=== PATIENT | male | born 1955 | race Caucasian/White ===

== ENCOUNTER 2024-02-05 08:41 | Day surgery (SDC) | payer MEDICARE, SELFPAY ==
--- NOTE | 2024-02-05 | PATH_ITS ---
[facility] Accession Number: [id number] No. of containers..02 Tissue . 01 Material submitted: . PART A: colon - ASCENDING COLON POLYP PART B: colon - TRANSVERSE COLON POLYP . 01 Diagnosis: A. ASCENDING COLON POLYP: Tubular adenoma. . B. TRANSVERSE COLON POLYP: Tubular adenoma. MRV 02/07/2024 1747 Local . 01 Electronically signed: . Enoch White MD, PhD, Pathologist NPI- [id number] . 01 Gross description: . Part A: ASCENDING COLON POLYP: Received in formalin is 1 fragment(s) of jacinto, soft tissue measuring 0.3 x 0.3 x 0.2 cm submitted entirely in 1 cassette(s) Part B: TRANSVERSE COLON POLYP: Received in formalin are 2 fragment(s) of jacinto, soft tissue measuring 0.3 x 0.3 x 0.3 cm to 0.5 x 0.4 x 0.3 cm submitted entirely in 1 cassette(s) /KEESHA 02/06/2024 0052 Local . 01 Pathologist provided ICD-10: D12.2, D12.3 . 01 CPT . 786279, 211504 Specimen Comment: A courtesy copy of this report has been sent to [phone] Performed at: [address] [facility] [address] [address], [place], [place] [id number] MD Cornelius Amaro MD Phone: [phone]
[2024-02-05 09:21] VITALS: BP 128/77; PULSE 66; RESP 16; TEMP 36.4; O2SAT 100
[2024-02-05] MEDS: LACTATED RINGERS 1,000 ML 42 ML IV (09:26)
--- NOTE | 2024-02-05 09:43 | P.HP_ITS ---
History of Present Illness History of Present Illness Date Patient Seen: 02/05/24 Time Patient Seen: 09:43 Chief complaint: SD Narrative: 68-year-old with a positive Cologuard here for colonoscopy. Negative colonoscopy at age 49. [facility] Medical History Hypertension Social History Smoking Status: Never smoker Meds Home Medications and Allergies Home Medications Medication Instructions Recorded Confirmed Type spironolactone 50 mg tablet 50 mg PO DAILY 02/05/24 02/05/24 History valsartan 80 mg tablet 80 mg PO DAILY 02/05/24 02/05/24 History Allergies Allergy/AdvReac Type Severity Reaction Status Date / Time No Known Drug Allergies Allergy Verified 02/05/24 09:19 Review of Systems Review of Systems ROS: Yes All systems reviewed with the patient and are negative except as otherwise documented Exam Vital Signs (past 8 hours): - 02/05/24 09:21 Temperature 97.5 F L Pulse Rate 66 Respiratory Rate 16 Blood Pressure 128/77 Pulse Oximetry 100 Oxygen Delivery Method Room Air Oxygen Delivery Method Room Air Const General: cooperative HENMT Head: normal to inspection Eyes General: appearance normal, both eyes and all related structures Neck Neck: normal visual inspection Chest Chest: normal inspection of the chest Resp Effort & Inspection: normal respiratory effort Cardio Rate: regular rate GI Inspection: normal to inspection Skin General: no rashes or lesions noted Neuro General: patient alert and patient awake Extrem General: normal to inspection and no pedal edema Psych Appearance: grossly normal Assessment & Plan Assessment & Plan narrative: 68-year-old female with a positive Cologuard. No family history of colon cancer. Colonoscopy is pursued today. Time-Based Coding :: [TOTAL MINUTES] spent with patient and on the chart (including review of chart, obtaining history, exam, reviewing outside data, placing orders, documenting exam and treatment plan, and counseling patient) on [DATE].
--- NOTE | 2024-02-05 09:44 | PM.PREOP ---
Pre-operative Note Interval Note History & Physical reviewed/Exam performed by Physician: Yes Changes to H&P: No ASA Class (for procedural sedation): II
--- NOTE | 2024-02-05 10:43 | PM.OP.COLON ---
Operative Date/Time/Diagnoses Date of procedure: 02/05/24 Time of procedure: 10:43 Pre-op diagnosis: Positive Cologuard Post-op diagnosis: same Procedure & Clinicians Study performed: Colonoscopy with cold snare polypectomy Same procedure as scheduled: Yes Indications: Positive Cologuard Surgeon: Zion Andersen Procedure Notes SCOAP/Timeout: Done Procedure in detail: After the risks and benefits were explained, written and verbal informed consent was obtained. The patient was brought into the procedure room and placed into the left lateral decubitus position. Please see anesthesia note for sedation details. Digital rectal examination was accomplished. The scope was introduced into the patient and advanced under direct visualization to the cecum as identified by the appendiceal orifice and ileocecal valve. The scope was slowly withdrawn to carefully examine the mucosa for any defects or lesions. Comprehensive imaging was accomplished throughout the rectum including the dentate line. The colon was decompressed, the scope was then removed from the patient who tolerated the procedure well. Pediatric colonoscope Bowel prep adequate Scope withdrawal time: 10 minutes Sedation minutes: 16 Impression: There was moderate diverticulosis throughout the sigmoid extending up into the descending colon. In the ascending colon there was a sessile 5 mm polyp removed with cold snare. In the transverse colon there were 2 sessile polyps ranging in size from 5-6 mm. These were both removed with cold snare as well. Endoscopic diagnosis 1. Diverticulosis 2. Multiple small colon polyps Post-procedure Plan for aftercare: 1. Await histology. 2. Repeat colonoscopy timing will be contingent on histopathology results. Disposition: PACU
[2024-02-05 10:47] VITALS: BP 97/60; PULSE 79; RESP 16; TEMP 36.2; O2SAT 98
[2024-02-05 10:52] VITALS: BP 99/67; PULSE 85; RESP 18; O2SAT 100
[2024-02-05 10:57] VITALS: BP 100/77; PULSE 80; RESP 20; TEMP 36.2; O2SAT 99
[2024-02-05 11:06] VITALS: BP 120/77; PULSE 71; RESP 17; TEMP 36.2; O2SAT 97
== END 2024-02-05 11:34 | disposition home or self-care (01) ==
PROVIDERS: PCP Registered Nurse; Referring Provider Internal Medicine Gastroenterology; Visit Provider Internal Medicine Gastroenterology
PROC: 0DJD8ZZ Inspection of Lower Intestinal Tract, Via Natural or Artificial Opening Endoscopic (ICD-10-PCS; CPT 45378; principal; 2024-02-05 10:00)
DX: Z12.11 Encounter for screening for malignant neoplasm of colon (principal); R19.5 Other fecal abnormalities; K57.30 Diverticulosis of large intestine without perforation or abscess without bleeding; D12.2 Benign neoplasm of ascending colon; D12.3 Benign neoplasm of transverse colon
CPT/HCPCS: 45385